=== PATIENT | female | born 1985 | race Caucasian/White ===

== ENCOUNTER → 2017-01-03 | Outpatient (CLI) | payer OTHER ==
[~2017-01-03] MED LIST: ISOVUE-370 76% 100ML VIAL (Q9967) As Ordered ONE
--- NOTE | 2017-01-03 16:37 | REP ---
HYSTEROSALPINGOGRAM: Hysterosalpingogram is performed. The patient's cervix was catheterized by the referring clinician who also injected contrast. I obtained spot radiographs. Right fallopian tube is not visualized. The very proximal aspect of the left fallopian tube is visualized. Only the proximal 1 cm of the right fallopian tube is visualized. There is no intraperitoneal spillage of contrast. There appears to be some filling of lymphatics on the left side. IMPRESSION: Right fallopian tube does not fill with contrast and is not patent. Left fallopian tube also is not patent with only the proximal 1 cm visualized. 28 seconds fluoroscopy time utilized. Signed by Brent Grimes MD 01/03/2017 05:07 P
== END ==
LOC: M RAD 11:50
PROVIDERS: ATTEND Obstetrics & Gynecology
DX: N97.9 Female infertility, unspecified (principal)
CPT/HCPCS: 74740; Q9967

== ENCOUNTER → 2017-04-17 | Outpatient (REF) | payer OTHER ==
[2017-04-17 16:14] LABS: ANION GAP 10 MEQ/L (8-16); BLOOD UREA NITROGEN 10 MG/DL (7-18); CALCIUM LEVEL 8.9 MG/DL (8.5-10.1); CARBON DIOXIDE LEVEL 23 MEQ/L (21-32); CHLORIDE LEVEL 108 MEQ/L (98-107); CREATININE FOR GFR 0.98 MG/DL (0.55-1.02); GLOMERULAR FILTRATION RATE > 60.0 (>60); GLUCOSE, FASTING 80 MG/DL (70-105); POTASSIUM SERUM 3.9 MEQ/L (3.5-5.1); SODIUM LEVEL 141 MEQ/L (136-145)
== END ==
LOC: M LABDRAW1 14:25
PROVIDERS: ATTEND Physician Assistant
DX: Z79.899 Other long term (current) drug therapy (principal)

== ENCOUNTER 2017-10-20 05:46 | Day surgery (SDC) | payer MEDICAID, OTHER, SELFPAY ==
[2017-10-20] MEDS: ACETAMINOPHEN 650 MG SUPP PR ×3 (06:00)
[2017-10-20 06:16] LABS: MEAN CORPUSCULAR HEMOGLOBIN 29.1 pg (27.0-33.0); MEAN CORPUSCULAR HGB CONC 32.1 g/dl (32.0-36.5); MEAN CORPUSCULAR VOLUME 90.7 fl (80.0-96.0); PLATELET COUNT, AUTOMATED 386 10^3/uL (150-450); RED CELL DISTRIBUTION WIDTH 12.1 % (11.5-14.5); WHITE BLOOD COUNT 9.4 10^3/uL (4.0-10.0)
[2017-10-20 06:41] LABS: ANION GAP 6 MEQ/L (8-16); BLOOD UREA NITROGEN 8 MG/DL (7-18); CALCIUM LEVEL 9.1 MG/DL (8.5-10.1); CARBON DIOXIDE LEVEL 29 MEQ/L (21-32); CHLORIDE LEVEL 106 MEQ/L (98-107); CREATININE FOR GFR 0.91 MG/DL (0.55-1.02); GLOMERULAR FILTRATION RATE > 60.0 (>60); GLUCOSE, FASTING 87 MG/DL (70-105); POTASSIUM SERUM 4.4 MEQ/L (3.5-5.1); SODIUM LEVEL 141 MEQ/L (136-145)
[2017-10-20] MEDS: LR 1,000 ML IV ×3 (06:42)
[2017-10-20] MEDS: SCOPOLAMINE 1MG TRANSDERMAL PATCH TOP ×3 (07:18)
[2017-10-20] MEDS ORDERED: LIDOCAINE 2% INJ 100 MG/5 ML SDV (FOR ANES.) As Ordered ×3 (07:20)
[2017-10-20] MEDS ORDERED: ROCURONIUM BROMIDE 50 MG/5 ML VIAL As Ordered ×3 (07:20)
[2017-10-20] MEDS ORDERED: PROPOFOL 200 MG/20 ML VIAL As Ordered ×3 (07:20)
[2017-10-20] MEDS ORDERED: fentaNYL 250 MCG/5 ML INJECTION (J3010) As Ordered ×3 (07:20)
[2017-10-20] MEDS ORDERED: MIDAZOLAM INJ 2 MG/2 ML VIAL (J2250) As Ordered ×3 (07:20)
[2017-10-20] MEDS: ACETAMINOPHEN 650 MG SUPP As Ordered ×3 (07:50)
[2017-10-20] MEDS ORDERED: NEOSTIGMINE 10 MG/10 ML VIAL (J2710) As Ordered ×3 (08:16)
[2017-10-20] MEDS ORDERED: GLYCOPYRROLATE INJ 0.2 MG/ML 2 ML VIAL As Ordered ×3 (08:16)
[2017-10-20] MEDS ORDERED: dexameTHASONE 4 MG/ML 1ML VIAL (J1100) As Ordered ×3 (08:16)
[2017-10-20] MEDS ORDERED: ONDANSETRON 4MG/2ML VIAL (J2405) As Ordered ×3 (08:16)
[2017-10-20] MEDS ORDERED: KETOROLAC 60 MG/2 ML VIAL (J1885) As Ordered ×3 (08:16)
[2017-10-20] MEDS ORDERED: METOCLOPRAMIDE INJ 10MG/2ML VIAL (J2765) As Ordered ×3 (08:16)
[2017-10-20] MEDS ORDERED: HYDROmorphone HCL 2 MG/ML 1ML VIAL (J1170) As Ordered ×3 (08:29)
[2017-10-20] MEDS: METHYLENE BLUE 0.5% (5MG/ML) 10 ML AMP (PROVAYBLUE)(Q9968 PER 1MG) As Ordered ×3 (08:30)
[2017-10-20] MEDS ORDERED: HYDROmorphone HCL 1 MG/ML SYRINGE (J1170) As Ordered ×3 (10:25)
[2017-10-20] MEDS: HYDROmorphone HCL 1 MG/ML SYRINGE (J1170) IV ×6 (10:30→10:58)
[2017-10-20] MEDS ORDERED: IBUPROFEN 600 MG TAB As Ordered ×3 (10:41)
[2017-10-20] MEDS ORDERED: IBUPROFEN 400 MG TAB As Ordered ×3 (10:43)
[2017-10-20] MEDS ORDERED: ONDANSETRON 4MG/2ML VIAL (J2405) IV ×3 (10:45)
[2017-10-20] MEDS ORDERED: PERCOCET 5MG/325MG TAB PO ×6 (10:45→11:00)
[2017-10-20] MEDS ORDERED: fentaNYL 100 MCG/2 ML INJECTION (J3010) IV ×3 (10:45)
[2017-10-20] MEDS ORDERED: METOCLOPRAMIDE INJ 10MG/2ML VIAL (J2765) IV ×3 (10:45)
[2017-10-20] MEDS ORDERED: LR 1,000 ML IV ×3 (10:45)
[2017-10-20] MEDS: IBUPROFEN 800 MG TAB PO ×3 (11:04)
== END 2017-10-20 12:27 | disposition home or self-care (01) ==
LOC: M SDC 05:46
DX: Z31.0 Encounter for reversal of previous sterilization (principal); E03.9 Hypothyroidism, unspecified; F32.9 Major depressive disorder, single episode, unspecified; K21.9 Gastro-esophageal reflux disease without esophagitis; K58.9 Irritable bowel syndrome, unspecified; M06.9 Rheumatoid arthritis, unspecified; Z79.899 Other long term (current) drug therapy; Z88.0 Allergy status to penicillin
CPT/HCPCS: 58750

== ENCOUNTER → 2018-04-25 | Outpatient (REF) | payer OTHER ==
[2018-04-25 17:17] LABS: HCG, SERUM QUANTITATIVE < 1.0 MIU/ML
== END ==
LOC: M LAB REF 16:31
DX: O36.80X0 Pregnancy with inconclusive fetal viability, not applicable or unspecified (principal)

== ENCOUNTER 2018-12-14 11:01 | Emergency (ER) | payer OTHER ==
[~2018-12-14] VITALS: Ht 162.6 cm; Wt 81.8 kg
[~2018-12-14 11:01] MED LIST changes: +CONT1TAB PO; -ISOVUE-370 76% 100ML VIAL (Q9967) As Ordered ONE; +KLOR1CAP2 PO; +LEVO75TA4 PO; +PERC5TAB12 PO; +TORS10TA3 PO
[2018-12-14] MEDS ORDERED: CYCL10TA PO (11:17)
[2018-12-14] MEDS ORDERED: METH1TAB40 (11:17)
[2018-12-14] MEDS ORDERED: RIZA10TA4 (11:17)
[2018-12-14] MEDS ORDERED: LUPR11.22 (11:17)
[2018-12-14] MEDS ORDERED: NAPR-885 PO (11:17)
[2018-12-14] MEDS ORDERED: LEXA1TAB2 PO (11:17)
--- NOTE | 2018-12-14 15:13 | REP ---
MR LUMBAR SPINE WITHOUT CONTRAST: HISTORY: Back pain. Decreased signal intensity on T2-weighted images is present in the L5-S1 intervertebral disc. This represent disc degeneration. There is no disc bulge or herniation at the L1-2 through L3-4 levels. The nerves exit the neural foramina without compression. A diffuse disc bulge is present at the L4-5 level. There is minimal compression of the thecal sac. The L4 nerves exit the neural foramina without compression. A diffuse disc bulge and mild size disc extrusion central and eccentric to the right are present at the L5-S1 level. There is minimal compression of the thecal sac and S1 nerves greater on the right than on the left as they entered the thecal sac. The L5 nerves exit the neural foramina without compression. The conus medullaris is normal in appearance terminating at the level of the L1-2 intervertebral disc. Normal signal intensity is present in the lumbar vertebral bodies. IMPRESSION: 1. Diffuse disc bulge at the L4-5 level with minimal thecal sac compression. 2. Diffuse disc bulge and mild size disc extrusion at the L5-S1 level with mild compression of the thecal sac and S1 nerves greater on the right than on the left as they exit the thecal sac. Electronically Signed by Heath Lopez MD 12/14/2018 03:15 P
[2018-12-14] MEDS ORDERED: PRED20TA PO (15:14)
[2018-12-14 15:33] VITALS: BP 134/68
--- NOTE | 2018-12-15 20:08 | ED PDOC ---
Post-Departure Follow-Up ft jose e lazo faxed formal report of mri ls spine for fu Mariana Haile MD Dec 15, 2018 20:08
== END 2018-12-14 15:35 | disposition home or self-care (01) ==
LOC: M ED 11:01 → EDBD 11:01 → M ED 15:35
DX: M54.31 Sciatica, right side (principal); M51.27 Other intervertebral disc displacement, lumbosacral region; N39.3 Stress incontinence (female) (male); R00.2 Palpitations; E03.9 Hypothyroidism, unspecified; F32.9 Major depressive disorder, single episode, unspecified; Z79.899 Other long term (current) drug therapy; Z88.0 Allergy status to penicillin; Z91.018 Allergy to other foods; Z91.030 Bee allergy status

== ENCOUNTER → 2019-02-07 | Outpatient (REF) | payer OTHER ==
[~2019-02-07] MED LIST changes: +CYCL10TA PO; +LEXA1TAB2 PO; +LUPR11.22; +METH1TAB40; +NAPR-885 PO; +PRED20TA PO; +RIZA10TA4
== END ==
LOC: M SFHCLERA 10:25
PROVIDERS: ATTEND Nurse Practitioner Family
DX: R50.9 Fever, unspecified (principal)

== ENCOUNTER → 2019-12-31 | Outpatient (REF) | payer OTHER ==
[~2019-12-31] MED LIST changes: -RIZA10TA4; +RIZA10TA58
[2019-12-31 17:48] LABS: BASO # 0.1 10^3/uL (0.0-0.2); BASO % 0.7 % (0.0-1.0); EOS # 0.1 10^3/uL (0.0-0.5); EOS % 1.4 % (0.0-3.0); HEMATOCRIT 44.2 % (36.0-47.0); HEMOGLOBIN 13.9 g/dl (12.0-15.5); LYMPH % 28.3 % (24.0-44.0); MEAN CORPUSCULAR HEMOGLOBIN 28.8 pg (27.0-33.0); MEAN CORPUSCULAR HGB CONC 31.4 g/dl (32.0-36.5); MEAN CORPUSCULAR VOLUME 91.7 fl (80.0-96.0); MONO # 0.4 10^3/uL (0.0-0.8); MONO % 6.2 % (0.0-5.0); NEUTROPHILS # 4.5 10^3/uL (1.5-8.5); NEUTROPHILS % 63.1 % (36.0-66.0); PLATELET COUNT, AUTOMATED 375 10^3/uL (150-450); RED BLOOD COUNT 4.82 10^6/uL (4.00-5.40); WHITE BLOOD COUNT 7.1 10^3/uL (4.0-10.0)
[2019-12-31 18:05] LABS: TOTAL PROTEIN,RANDOM URINE 14.2 MG/DL (0.0-12.0)
[2019-12-31 18:15] LABS: ERYTHROCYTE SEDIMENTATION RATE 12 mm/hr (0-20)
[2019-12-31 18:52] LABS: ALBUMIN 4.2 GM/DL (3.2-5.2); ALT/SGPT 21 U/L (12-78); BILIRUBIN,TOTAL 0.4 MG/DL (0.2-1.0); BLOOD UREA NITROGEN 13 MG/DL (7-18); C REACTIVE PROTEIN QUANTITATIV 0.39 MG/DL (0.00-0.30); CALCIUM LEVEL 8.8 MG/DL (8.5-10.1); CARBON DIOXIDE LEVEL 28 MEQ/L (21-32); CHLORIDE LEVEL 105 MEQ/L (98-107); COMPLEMENT C3 141 MG/DL (90-180); COMPLEMENT C4 41 MG/DL (10-40); CREATININE FOR GFR 0.78 MG/DL (0.55-1.30); GLOMERULAR FILTRATION RATE > 60.0 (>60); GLUCOSE, FASTING 72 MG/DL (70-100); RHEUMATOID FACTOR QUANT < 10.0 IU/ML (<15.0); SODIUM LEVEL 139 MEQ/L (136-145); TOTAL PROTEIN 7.8 GM/DL (6.4-8.2)
[2020-01-01 11:12] LABS: HEPATITIS B SURFACE ANTIGEN NEGATIVE (NEGATIVE)
[2020-01-08 00:06] LABS: ANTI DS-DNA AB Negative (Negative); BETA-2 GLYCOPROTEIN I ABY IGA <9 (0-25); BETA-2 GLYCOPROTEIN I ABY IGG <9 (0-20); BETA-2 GLYCOPROTEIN I ABY IGM <9 (0-32); CARDIOLIPIN IGA ANTIBODY <9 APL U/mL (0-11); CARDIOLIPIN IGG ANTIBODY <9 GPL U/mL (0-14); CARDIOLIPIN IGM ANTIBODY <9 MPL U/mL (0-12); CYCLIC CITRULLINATED PEPTIDE 9 units (0-19); HEPATITIS B CORE ANTIBODY IGG Negative (Negative); HLA-B27 Negative (.); RNP ANTIBODY < 0.2 AI (0.0-0.9); SMITHS ANTIBODY 0.5 AI (0.0-0.9); SSA SJOGRENS A <0.2 AI (0.0-0.9); SSB SJOGRENS B <0.2 AI (0.0-0.9)
== END ==
LOC: M SFHCRHEU 10:56
PROVIDERS: ATTEND Internal Medicine
DX: R76.8 Other specified abnormal immunological findings in serum (principal)
CPT/HCPCS: 36415; 80053; 81374; 82570; 84156; 85025; 85613; 85652; 85732; 86140; 86146; 86147; 86160; 86200; 86225; 86235; 86255; 86431; 86480; 86704; 86803; 87340; G0463

== ENCOUNTER → 2020-03-04 | Outpatient (CLI) | payer OTHER ==
[~2020-03-04] MED LIST changes: +CYCL-707 PO; -CYCL10TA PO
--- NOTE | 2020-03-04 12:47 | REP ---
MRI RIGHT KNEE: TECHNIQUE: Axial proton density fat saturation, sagittal proton density T2 STIR, water excitation, coronal proton density, proton density fat saturation. There is no evidence of a meniscal tear. The cruciate and collateral ligaments are intact. The extensor mechanism is intact. The medial and lateral patellar retinacula are intact. There is mild chondromalacia of the medial patellar facet with some mild fissuring of the cartilage at that location. There is a plica noted lateral to the patellofemoral joint. In the adjacent anterior femoral notch centrally, there is an 8 mm cartilaginous defect which extends close to the osseous surface. An oval 6 mm joint body is seen more inferiorly in the anterior central joint. It is along the anterior tibial plateau. Possible smaller joint body is seen in the anteromedial joint recess. There may be another subcentimeter joint body in the anterolateral joint recess adjacent to the plica. No popliteal cyst is seen. There is some minimal subchondral marrow edema in the posterior femoral notch region. There is a moderate joint effusion. IMPRESSION: No meniscal tear. Cruciate and collateral ligaments intact. 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 There is an 8 mm chondral defect extending down close to the osseous surface in the anterior femoral notch. Suspected subcentimeter joint bodies as discussed above. Moderate joint effusion. Lateral plica. Electronically Signed by Brent Grimes MD 03/04/2020 01:03 P
== END ==
LOC: M RAD 10:26
PROVIDERS: ATTEND Orthopaedic Surgery Sports Medicine
DX: M25.561 Pain in right knee (principal); M22.41 Chondromalacia patellae, right knee; M25.461 Effusion, right knee; M67.51 Plica syndrome, right knee

== ENCOUNTER → 2020-10-21 | Outpatient (CLI) | payer OTHER ==
--- NOTE | 2020-10-22 07:12 | ECGEPIP ---
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 Somewhat low voltages with incomplete RBBB, slow precordial R wave progression and persistent S wave V5 and V6; body habitus versus pulmonary disease No prior tracing for comparison. Clincal correlation advised Electronically Signed on 10-22-2020 7:12:02 EST by Sam Mccurdy
== END ==
LOC: M EKG 10:15
PROVIDERS: ATTEND Orthopaedic Surgery Sports Medicine
DX: Z01.812 Encounter for preprocedural laboratory examination (principal); M23.41 Loose body in knee, right knee

== ENCOUNTER → 2020-10-23 | Outpatient (CLI) | payer OTHER | LOC: M LABSMTC 10:09 | PROVIDERS: ATTEND Orthopaedic Surgery Sports Medicine | DX: Z01.812 Encounter for preprocedural laboratory examination (principal); Z20.828 Contact with and (suspected) exposure to other viral communicable diseases ==

== ENCOUNTER → 2020-12-02 | Outpatient (CLI) | payer SELFPAY ==
[~2020-12-02] MED LIST changes: +METH-1164; -METH1TAB40
== END ==
LOC: M LABSMTC 13:28
PROVIDERS: ATTEND Pediatrics
DX: Z20.822 Contact with and (suspected) exposure to COVID-19 (principal)